=== PATIENT | male | born 1955 | race Caucasian/White ===

== ENCOUNTER 2017-06-13 12:56 | Emergency (ER) | payer OTHER, MEDICAID ==
[~2017-06-13] VITALS: Ht 177.8 cm; Wt 93.0 kg
[2017-06-13] MEDS ORDERED: MULT-1146 PO (13:12)
[2017-06-13] MEDS ORDERED: [UNRECOGNIZED DRUG - OTHER] (13:12)
[2017-06-13] MEDS ORDERED: INSU3INS6 SQ (13:12)
[2017-06-13] MEDS ORDERED: WARF5TAB73 PO (13:12)
[2017-06-13 17:40] VITALS: BP 154/80
== END 2017-06-13 17:50 | disposition home or self-care (01) ==
LOC: ER 17:29
DX: K08.89 Other specified disorders of teeth and supporting structures (principal); I25.10 Atherosclerotic heart disease of native coronary artery without angina pectoris; Z86.73 Personal history of transient ischemic attack (TIA), and cerebral infarction without residual deficits; Z95.5 Presence of coronary angioplasty implant and graft; Z88.0 Allergy status to penicillin
CPT/HCPCS: 99283